=== PATIENT | male | born 1950 | race Two or more races ===

== ENCOUNTER 2022-12-09 16:16 | Inpatient (IN) | payer OTHER ==
[~2022-12-09] VITALS: Ht 170.2 cm; Wt 77.1 kg
[2022-12-10] MEDS ORDERED: LIPITOR40 M1 PO (15:44)
[2022-12-10] MEDS ORDERED: ZIPSOR25 MG PO (15:44)
[2022-12-10] MEDS ORDERED: COZAAR100 MG PO (15:44)
[2022-12-10] MEDS ORDERED: AMPICILLIN SOD500 MG IM (15:45)
[2022-12-10] MEDS ORDERED: ACID REDUCER20 M1 PO (15:45)
[2022-12-10] MEDS ORDERED: HYDRODIURIL12.5 MG PO (15:45)
[2022-12-14] MEDS ORDERED: DICLOFENAC SODI50 MG (13:02)
[2022-12-14] MEDS ORDERED: MAXIMUM D3325 MCG (13:02)
[2022-12-14] MEDS ORDERED: FUROSEMIDE20 MG (13:02)
[2022-12-14] MEDS ORDERED: NORFLEX100MG (13:04)
[2022-12-14] MEDS ORDERED: DICLOFENAC POTA50 MG (13:04)
[2022-12-14] MEDS ORDERED: RESTORIL15 MG (13:04)
[2022-12-14] MEDS ORDERED: PANTOPRAZOLE SO40 MG (13:04)
[2022-12-14] MEDS ORDERED: ADULT ASPIRIN81 MG (13:04)
[2022-12-16] MEDS ORDERED: OXYC1TAB9 PO (06:31)
[2022-12-16] MEDS ORDERED: BACTRIM DS TAB1 EACH PO (06:31)
[2022-12-16] MEDS ORDERED: XARELTO10 MG PO (06:31)
[2022-12-16] MEDS ORDERED: INTEGRA PLUS C1 EACH PO (06:31)
== END 2022-12-16 13:21 | disposition home or self-care (01) | DRG 470 ==
LOC: O/R 12-14 06:00 → SURH 12-14 10:15
PROVIDERS: ADMIT Orthopaedic Surgery Sports Medicine; ATTEND Orthopaedic Surgery Sports Medicine
PROC: 0SRD0J9 Replacement of Left Knee Joint with Synthetic Substitute, Cemented, Open Approach (ICD-10-PCS; principal; 2022-12-14 10:15)
DX: M17.12 Unilateral primary osteoarthritis, left knee (principal); I10 Essential (primary) hypertension; Z96.652 Presence of left artificial knee joint